=== PATIENT | female | born 1995 | race Caucasian/White ===

== ENCOUNTER 2018-10-22 13:09 | Emergency (ER) | payer OTHER, SELFPAY ==
[2018-10-22 13:09] VITALS: BP 128/72; PULSE 114; RESP 20; TEMP 36.3; O2SAT 100; BMI 23.8
[2018-10-22 13:52] LABS: Absolute Lymphocyte Count 0.58 X10^3/ul (0.83-4.51); Absolute Neutrophil Count 11.8 X10^3/uL (2.0-7.7); Basophil# 0.01 X10^3/uL; Basophil% 0.1 % (0-1); Differential Indicated SCAN CRITERIA MET; Eosinophil# 0.05 X10^3/uL; Eosinophils% 0.4 % (0-5); Hematocrit 42.9 % (37-47); Hemoglobin 14.7 g/dl (12.0-15.0); Lymphocyte # 0.58 X10^3/ul (4.0); Lymphocyte % 4.5 % (19-41); Mean Corp Hgb Conc 34.3 g/gl (32-36); Mean Corpuscular Hgb 30.8 pg (27.0-32.0); Mean Corpuscular Volume 89.7 fL (81-99); Mean Platelet Vol. 10.1 fl (6.2-12.0); Monocyte% 3.1 % (0-10); Neutrophil # 11.78 X10^3/uL (2.7-7.7); Neutrophil % 91.7 % (47-70); POSITIVE COUNT NO; POSITIVE DIFFERENTIAL YES; POSITIVE MORPHOLOGY NO; Platelet Count 303 K/mm3 (150-450); RBC Distribution Width SD 42.6 fl (35.1-43.9); Red Blood Count 4.78 M/mm3 (4.2-5.4); White Blood Count 12.8 K/mm3 (4.4-11.0)
[2018-10-22 13:58] LABS: Internal QC Validated? YES +Cl - CLEAR BKGD; Pregnancy, Serum, hCG Quali. NEGATIVE Negative
[2018-10-22 14:03] LABS: Anion Gap 13 (5-15); BUN 10 mg/dL (7-18); BUN/Creat Ratio 11.1 RATIO (10-20); Calcium,Total 9.4 mg/dL (8.5-10.1); Chloride 105 mmol/L (98-107); EST Glomerular Filtration Rate 83 mL/min (>60); Est Glom Filt Rate - Afr Amer 101 mL/min (>60); Estimated Creatinine Clearance 88.97 ml/min; Glucose 114 mg/dL (74-106); Potassium 4.3 mmol/L (3.5-5.1); Sodium Level 140 mmol/L (136-145)
--- NOTE | 2018-10-22 14:21 | ED.DCSUM_ITS ---
- ER Visit Summary Date of Service: 10/22/18 Chief Complaint: Nausea, vomiting diarrhea History of Present Illness: The patient is a 23 F no significant past medical or surgical history of ADHD. Patient vacation last week. This morning started having nausea vomiting and diarrhea. No fever. Just some crampy abdominal discomfort. Last menstrual period was 3 weeks ago. Decreased oral intake. Clinically states she feels dehydrated. Physical Examination: Vital signs are stable and afebrile. Young female clinically looks dehydrated and feels ill but does not look septic or toxic. HEENT exam unremarkable other than dry mucous membranes. Neck nontender no lymphadenopathy. Lungs clear to auscultation bilaterally. Heart tachycardic rate about 15 no murmur. Abdomen is soft and nondistended normal bowel sounds no peritoneal signs. No right upper or right lower quadrant tenderness. No hernias or masses. No signs of obstruction. All 4 extremities. They are neurovascularly intact. Back exam is nontender. Neurologically she is awake and alert with no focal deficits. Skin is unremarkable. Test Results: Nurse's addendum protocol labs her CBC showed a white count 12.8. Hemoglobin of 14. Chemistries unremarkable BUN 10 creatinine 0.9 normal gap. Serum test negative. They had ordered a urinalysis she is having her urinary symptoms I canceled that. Emergency Department Course and Treatment: History and exam consistent with viral gastroenteritis. Patient treated with IV fluids and IV Phenergan. P.o. fluid challenge. On repeat exam she is feeling better. Comfortably discharged to home. Treatment Plan: Plenty of fluids and rest. Increase diet slowly. Zofran as needed for nausea. Disposition: dc Impression: Acute viral gastroenteritis This note was generated with [employer] dictation software. It may contain incorrect words, spelling, and punctuation that were not noted in review of the chart prior to signing ED Disposition - Plan for ED Patient: Referrals: Roger Chávez MD [Primary Care Provider] -
[2018-10-22] MEDS: 0.9% Normal Saline 1,000 ML 999 ML IV (14:24)
[2018-10-22] MEDS: proMETHazine 25 MG/ML Syringe 12.5 MG IV (14:24)
[2018-10-22 15:00] LABS: Lipase 105 U/L (73-393)
--- NOTE | 2018-10-22 15:59 | ED.DEP ---
ED Disposition - Plan for ED Patient: Disposition: Home or Assisted Living Instructions: GASTROENTERITIS, Viral (8y-Adult) Prescriptions: Ondansetron [Zofran Odt] 4 mg PO Q8H PRN PRN #7 tab PRN Reason: Nausea Prescription Printed Referrals: Roger Chávez MD [Primary Care Provider] - As Needed Additional Instructions: Plan fluids and rest. Increase diet slowly as tolerated. Zofran as needed for nausea.
[2018-10-22 16:00] VITALS: BP 121/78; PULSE 101; RESP 19; O2SAT 99
[2018-10-22 16:11] VITALS: BP 122/71; PULSE 67; RESP 17; O2SAT 98
== END 2018-10-22 16:13 | disposition home or self-care (01) ==
PROVIDERS: Emergency Provider Emergency Medicine; Family Provider Pediatrics; PCP Pediatrics
DX: A08.4 Viral intestinal infection, unspecified (principal); E86.0 Dehydration; F90.9 Attention-deficit hyperactivity disorder, unspecified type; Z79.899 Other long term (current) drug therapy
CPT/HCPCS: 80048; 83690; 84703; 85025; 96361; 96374; 99283; J7030; A4216

== ENCOUNTER 2024-04-20 01:02 | Emergency (ER) | payer OTHER, SELFPAY ==
[2024-04-20 01:04] VITALS: BP 115/78; PULSE 101; RESP 22; TEMP 35.7; O2SAT 100; BMI 24.3
--- NOTE | 2024-04-20 01:17 | EDS_ITS ---
HPI History of Present Illness Chief Complaint: Nausea/Vomiting/Diarrhea Informant: patient and spouse/S.O. Narrative Narrative: 29-year-old female presenting to the emergency room with vomiting and diarrhea. Patient went out to eat this evening with her significant other they have boneless wings. He has not been feeling ill. She suddenly began to have vomiting and some diarrhea around 2200 hours. She notes some intermittent abdominal cramping. She feels globally weak. No reported fevers. PFSH PFSH Medical History ADHD Acne Home Medications ?Medication ?Instructions ?Recorded ?Last Taken ?Type lisdexamfetamine 50 mg capsule 50 mg PO DAILY 04/20/24 Unknown History ondansetron 4 mg disintegrating 4 mg PO Q6H PRN PRN Nausea #15 tabs 04/20/24 Unknown Rx tablet spironolactone 25 mg tablet 25 mg PO DAILY 04/20/24 Unknown History Allergy/AdvReac Type Severity Reaction Status Date / Time erythromycin base Allergy Unknown PT UNSURE Verified 04/20/24 01:08 OF REACTION Surgical History no surgical history Social History Smoking Status: Never smoker ROS ROS ED Constitutional Constitutional ED: Denies chills, fever(s) or weight loss Eyes Eyes: Denies change in vision or diplopia ENT ENT ED: Denies ear pain, rhinorrhea or sore throat Cardiovascular Cardiovascular: Denies chest pain, orthopnea, palpitations or racing heartbeat Respiratory/Chest Respiratory/Chest: Denies cough, dyspnea or orthopnea Gastrointestinal Gastrointestinal: Reports diarrhea, nausea and vomiting; Denies abdominal pain or constipation Genitourinary Genitourinary ED: Denies dysuria, hematuria or urinary frequency Musculoskeletal Musculoskeletal: Denies arthralgias or myalgias Integumentary Denies abscess or rash Neurologic Neurologic: Denies headache(s) or weakness Psychiatric Psychiatric: Denies anxiety, depression, suicidal ideation or suicidal thoughts Endocrine Endocrinology: Denies polydipsia, polyphagia or polyuria Allergic/Immunologic Allergic/Immunologic ED: Denies mouth swelling, tongue swelling or urticaria EXAM Physical Exam Narrative Exam Narrative: Patient actively vomiting Const Vital Signs: 04/20/24 01:04 Temperature 96.3 F L Temperature Source Axillary Pulse Rate 101 H Respiratory Rate 22 H Blood Pressure 115/78 Blood Pressure Mean 90 Pulse Ox 100 Oxygen Delivery Method Room Air Positive well nourished and well developed General Appearance ED: well developed and pallor HEENT Reports normocephalic, head/scalp atraumatic and moist mucous membranes Eyes PERRL and EOMs intact bilaterally Neck no lymphadenopathy, supple and no JVD Resp normal respiratory effort and clear to auscultation bilaterally Cardio regular rate, regular rhythm and no murmurs GI normal to inspection, nondistended, normoactive bowel sounds and non-tender Palpation: soft Back/Spine no CVA tenderness and normal ROM Extremity normal to inspection General Extremety ED: Negative for edema General Extremity: Negative for edema Neuro oriented x3 and CN's II-XII intact bilaterally Sensorium / Orientation: alert Motor Exam: strength 5/5 throughout Psych mental status grossly normal Mood & Affect: Negative for depressed or tearful Skin no rashes or lesions noted and no wounds General Skin Exam: pallor MDM MDM MDM Narrative Medical decision making narrative: Differential diagnosis includes but not limited to gastritis gastroenteritis viral syndrome pancreatitis biliary colic dehydration electrolyte O'Lillian's Patient's white count is nonspecifically elevated 11.3 86.2 neutrophils hemoglobin 14 platelet count of 258. test is negative. Potassium slightly low at 3.2 CO2 20 anion gap of 11 BUN of 12 creatinine 0.80 normal LFTs normal lipase. Patient received IV fluids and Zofran. She has been resting more comfortably. No further vomiting. The abdominal exam continues to be benign and I do feel this is most likely viral in nature. Would recommend at home as needed Zofran oral hydration return if worsening or concerns History & Record Review Discussion w/independent historian: Patient and Significant other Additional record(s) reviewed:: Prior ED visit Lab Data Attestation: I reviewed the patient's lab results. Labs: Laboratory Results - last 24 hr 04/20/24 01:22 WBC 11.3 H RBC 4.53 Hgb 14.0 Hct 39.7 MCV 87.6 MCH 30.9 MCHC 35.3 RDW Std Deviation 37.9 RDW Coeff of Alix 11.8 Plt Count 258 MPV 10.0 Immature Gran % (Auto) 0.400 Neut % (Auto) 86.2 H Lymph % (Auto) 8.9 L [place] % (Auto) 3.6 Eos % (Auto) 0.7 Baso % (Auto) 0.2 Absolute Neuts (auto) 9.7 H Absolute Lymphs (auto) 1.01 Nucleated RBC % 0 Sodium 140 Potassium 3.2 L Chloride 109 H Carbon Dioxide 20.0 L Anion Gap 11 BUN 12 Creatinine 0.80 Estim Creat Clear Calc 95.05 Est GFR (MDRD) Af Amer 111 Est GFR (MDRD) Non-Af 92 BUN/Creatinine Ratio 15.0 Glucose 171 H Calcium 9.2 Total Bilirubin 0.60 Direct Bilirubin 0.11 AST 16 ALT 30 Alkaline Phosphatase 72 Total Protein 7.9 Albumin 4.3 Globulin 3.6 Lipase 19 Serum , Qual NEGATIVE Discharge Plan Triage Chief Complaint: Nausea/Vomiting/Diarrhea ED Provider: Ryan Harris Dx/Rx/DC Orders Clinical Impression: Vomiting Instructions: ED Vomiting (Adult) Prescriptions: New ondansetron 4 mg tablet,disintegrating 4 mg PO Q6H PRN PRN (Reason: Nausea) Qty: 15 0RF No Action spironolactone 25 mg tablet 25 mg PO DAILY lisdexamfetamine 50 mg capsule 50 mg PO DAILY Primary Care Provider: Nxion Farrell Referrals: Nixon Farrell MD [Primary Care Provider] - As Needed Print Language: Mongolian Disposition Disposition: Home, Self Care
[2024-04-20] MEDS: 0.9% Normal Saline (1000mL) 1,000 ML 1000 ML IV (01:25)
[2024-04-20] MEDS: Ondansetron 4 MG/2 ML Vial IV (01:25)
[2024-04-20 01:33] LABS: Absolute Lymphocyte Count 1.01 X10^3/uL (0.83-4.51); Absolute Neutrophil Count 9.7 X10^3/uL (2.0-7.7); Basophil# 0.02 X10^3/uL; Basophil% 0.2 % (0-1); Eosinophil# 0.08 X10^3/uL; Eosinophils% 0.7 % (0-5); Hematocrit 39.7 % (37-47); Lymphocyte # 1.01 X10^3/ul (0.83-4.51); Lymphocyte % 8.9 % (19-41); Mean Corp Hgb Conc 35.3 g/dL (32-36); Mean Corpuscular Hgb 30.9 pg (27.0-32.0); Mean Corpuscular Volume 87.6 fL (81-99); Monocyte# 0.41 X10^3/uL; Monocyte% 3.6 % (0-10); NRBC Flagged by Analyzer 0 % (0-5); Neutrophil # 9.73 X10^3/uL (2.7-7.7); Neutrophil % 86.2 % (47-70); Platelet Count 258 K/mm3 (150-450); RBC Distribution Width CV 11.8 % (11.6-14.6); RBC Distribution Width SD 37.9 fl (35.1-43.9); Red Blood Count 4.53 M/mm3 (4.2-5.4); White Blood Count 11.3 K/mm3 (4.4-11.0)
[2024-04-20 01:52] LABS: AST(SGOT) 16 U/L (15-37); Alanine Aminotransfer ALT/SGPT 30 U/L (13-56); Albumin, Serum 4.3 g/dL (3.2-5.0); Alkaline Phosphatase 72 U/L (45-117); Anion Gap 11 (5-15); BUN 12 mg/dL (7-18); Bilirubin, Direct 0.11 mg/dL (0.00-0.30); Calcium,Total 9.2 mg/dL (8.5-10.1); Chloride 109 mmol/L (98-107); EST Glomerular Filtration Rate 92 mL/min (>60); Est Glom Filt Rate - Afr Amer 111 mL/min (>60); Estimated Creatinine Clearance 95.05 ml/min; Globulin 3.6 g/dL (2.2-4.2); Glucose 171 mg/dL (74-106); Lipase 19 U/L (13-75); Potassium 3.2 mmol/L (3.5-5.1); Protein, Total 7.9 g/dL (6.4-8.2); Sodium Level 140 mmol/L (136-145)
[2024-04-20 02:01] LABS: Internal QC Validated? YES +Cl - CLEAR BKGD; Pregnancy, Serum, hCG Quali. NEGATIVE Negative
[2024-04-20 03:03] VITALS: BP 94/80; PULSE 90; RESP 18; O2SAT 99
[2024-04-20 03:07] VITALS: BP 94/80; PULSE 90; RESP 18; TEMP 36.5; O2SAT 99
[2024-04-20] MEDS: Ondansetron ODT 4 MG Tablet PO (03:29)
== END 2024-04-20 03:58 | disposition home or self-care (01) ==
PROVIDERS: Emergency Provider Emergency Medicine; PCP Family Medicine; Visit Provider Emergency Medicine
DX: R11.2 Nausea with vomiting, unspecified (principal); R19.7 Diarrhea, unspecified; R10.9 Unspecified abdominal pain; F90.9 Attention-deficit hyperactivity disorder, unspecified type
CPT/HCPCS: 80048; 80076; 83690; 84703; 85025; 96361; 96374; 99282; A4216; J2405